=== PATIENT | male | born 2000 | race Caucasian/White ===

== ENCOUNTER 2018-03-20 20:10 | Emergency (ER) | payer OTHER ==
[2018-03-20] MEDS ORDERED: FAMOTIDINE 20 MG TABLET PO ONE (22:03)
[2018-03-20] MEDS ORDERED: DEXAMETHASONE SOD PHOS INJ 10 MG/1 ML VIAL IM ONE (22:03)
--- NOTE | 2018-03-20 22:09 | ER Document Report ---
ED Skin Rash/Insect Bite/Abscs - General Chief Complaint: Skin Problem and rash Stated Complaint: RASH RIGHT SIDE OF BACK Time Seen by Provider: 03/20/18 20:25 Mode of Arrival: Ambulatory Information source: Patient Notes: 18-year-old male presented to ED for complaint of mild pain to the right back with what appeared to be large hives and a line in a single dermatome. There was no vesicular rash. Patient stated he did have itching with very little pain and that the itching and pain is gone at this time. 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 Denies any past medical history he does have all his immunizations up-to-date and states he has never had chickenpox. His is . Patient is alert oriented respirations regular and unlabored speaking in full sentences. TRAVEL OUTSIDE OF THE [place] IN LAST 30 DAYS: No - HPI Patient complains to provider of: Skin rash/lesion - Right back along a single dermatome but the rash is not vesicular it looks more like hives Onset: Just prior to arrival Onset/Duration: Gradual Quality of pain: No pain - No pain at this time. He states there was minimal pain earlier Severity: Mild Pain Level: 1 Skin Character: Erythema, Rash - I like rash in a single dermatome mid back on the right Quality of rash: Itchy - Mild, Painful - States he did have some mild pain but no pain at this time Identify cause: No Exacerbated by: Denies Relieved by: Denies Similar symptoms previously: No Recently seen / treated by doctor: No - Related Data Allergies/Adverse Reactions: No Known Allergies Allergy (Unverified 03/20/18 20:16) Past Medical History - General Information source: Patient - Social History Smoking Status: Current Every Day Smoker Cigarette use (# per day): Yes - 6 cigarettes a day Chew tobacco use (# tins/day): No Smoking Education Provided: Yes - 4 minutes Frequency of alcohol use: None Drug Abuse: None Occupation: Active-duty [employer] Lives with: Family Family History: Reviewed & Not Pertinent Patient has suicidal ideation: No Patient has homicidal ideation: No - Past Medical History Cardiac Medical History: Reports: None Pulmonary Medical History: Reports: None EENT Medical History: Reports: None Neurological Medical History: Reports: None Endocrine Medical History: Reports: None Renal/ Medical History: Reports: None Malignancy Medical History: Reports None GI Medical History: Reports: None Musculoskeletal Medical History: Reports None Skin Medical History: Reports None Psychiatric Medical History: Reports: None Traumatic Medical History: Reports: None Infectious Medical History: Reports: None Surgical Hx: Negative Past Surgical History: Reports: None - Immunizations Immunizations up to date: Yes Hx Diphtheria, Pertussis, Tetanus Vaccination: Yes Review of Systems - Review of Systems Constitutional: No symptoms reported EENT: No symptoms reported Cardiovascular: No symptoms reported Respiratory: No symptoms reported Gastrointestinal: No symptoms reported Genitourinary: No symptoms reported Male Genitourinary: No symptoms reported Musculoskeletal: No symptoms reported Skin: Rash - This is not a vesicular rash Hematologic/Lymphatic: No symptoms reported Neurological/Psychological: No symptoms reported -: Yes All other systems reviewed and negative Physical Exam - Vital signs Vitals: Temp Pulse Resp BP Pulse Ox 98.0 F 76 16 115/56 L 97 03/20/18 20:19 03/20/18 20:19 03/20/18 20:19 03/20/18 20:19 03/20/18 20:19 Interpretation: Normal - General General appearance: Appears well, Alert - HEENT Head: Normocephalic, Atraumatic Eyes: Normal Pupils: PERRL - Respiratory Respiratory status: No respiratory distress Chest status: Nontender Breath sounds: Normal Chest palpation: Normal - Cardiovascular Rhythm: Regular Heart sounds: Normal auscultation Murmur: No - Abdominal Inspection: Normal Distension: No distension Bowel sounds: Normal Tenderness: Nontender Organomegaly: No organomegaly - Back Back: Normal, Nontender - Extremities General upper extremity: Normal inspection, Nontender, Normal color, Normal ROM , Normal temperature General lower extremity: Normal inspection, Nontender, Normal color, Normal ROM , Normal temperature, Normal weight bearing. No: Telma's sign - Neurological Neuro grossly intact: Yes Cognition: Normal Orientation: AAOx4 Cam Coma Scale Eye Opening: Spontaneous Sheldon Coma Scale Verbal: Oriented Sheldon Coma Scale Motor: Obeys Commands Cam Coma Scale Total: 15 Speech: Normal Motor strength normal: LUE, RUE, LLE, RLE Sensory: Normal - Psychological Associated symptoms: Normal affect, Normal mood - Skin Skin Temperature: Warm Skin Moisture: Dry Skin Color: Normal Skin irregularity: Rash - right upper back does not cross the midline but is not vesicular in a single dermatome Character of irregularity: Erythematous, Urticarial Course - Re-evaluation Re-evalutation: 03/21/18 01:[address] Cai due to the location of the rash even though the rash is not vesicular. He recommended treating the patient as an allergic reaction but to instruct the patient to follow-up with his doctor if it forms pustules or it becomes painful. Patient was treated as recommended and discharged home with instructions to follow-up with his doctor. - Vital Signs Vital signs: Temp Pulse Resp BP Pulse Ox 98.0 F 59 L 16 111/66 100 03/20/18 20:19 03/20/18 22:37 03/20/18 22:37 03/20/18 22:37 03/20/18 22:37 Discharge - Discharge Clinical Impression: Rash and nonspecific skin eruption Condition: Stable Disposition: HOME, SELF-CARE Additional Instructions: ACUTE ALLERGIC REACTION: Your symptoms are due to an allergic reaction. Allergy can cause hives, swelling of the hands, feet, and face, hoarseness, and difficulty swallowing or breathing. It may be due to exposure to medication, animal dander, foods, infection, or insect bites. Medication is a common cause, even when prior use of this same medication caused no problems. Acute treatment may include adrenalin and antihistamines. Usually, the specific allergic agent can't be identified unless repeated episodes occur. Home treatment includes the following: (1) Stop any suspicious medications. This will be discussed with you. (2) Oral antihistamines for the next four to five days. Example, diphenhydramine (Benadryl) every four hours. (3) You may also use cimetidine (Tagamet), ranitidine (Zantac), or famotidine ( Pepcid) every four hours if diphenhydramine is not controlling itching and hives. (4) Avoid aspirin until the hives completely disappear. (5) Avoid hot baths or showers until the hives are completely gone. Call the doctor if faintness, difficulty swallowing, tightness in the chest , or wheezing occurs. The rash to your right back appears to be an allergic reaction to something you have come in contact with but it is in a dermatome that is consistent with shingles. The rash is not vesicular in nature which most shingles are and it is not painful. I have given you steroid injections antihistamines and acid suppressive medication which is treatment for an allergic reaction. Please monitor this rash if it starts wrapping around to your chest becomes more like fluid-filled bumps and becomes painful you need to seek medical attention as this could be shingles. There is medication to reduce the discomfort from shingles but there is nothing to prevent or cure shingles as it is a viral infection of the nerve endings. I have given you instructions here concerning shingles not that this is what I am diagnosing you with but just so you will know what to look for. Shingles I do not feel that you have shingles at this time but this is education so if you have the symptoms you can follow-up with your medical provider. Shingles is caused by the chicken pox virus, The virus has been surviving dormant in a nerve cell since you had chicken pox years ago. The virus has spread down a nerve root to reach the skin. Typically, an band-like area of pain and skin sensitivity develops, then small blisters erupt in the area. Shingles lasts two or three weeks, but sometimes leaves persistent pain. You are contagious if anyone touches the area -- you can give children chicken pox. But you can't give anyone shingles. Antiviral medicines (such as acyclovir or famciclovir) can help, but the rash usually worsens for about a week. Pain medication is often given if the area hurts. Antihistamines such as Benadryl may be necessary for itching if it does not respond to soda baths and calamine lotion. Sometimes cortisone medicine or nerve-block shots are necessary if pain is severe. If the area remains severely painful as the sores heal, or if you suspect an infection developing in the sores, see your doctor. STEROID MEDICATION INJECTION: You have been given an injection of medicine of the cortisone/steroid class. This medication is used to control inflammation or allergy. It is often continued as a pill for a short period of time, until the acute process subsides. There are usually no side effects from short-term use of cortisone-like medications. Some persons feel an increased sense of well-being and are not sleepy at bedtime. Long-term use of cortisone medications is best avoided, unless required for a severe condition. If your condition does not remit, or relapses after the course of corticosteroid medication, you should consult your physician. ACID-SUPPRESSING MEDICATION: You have a prescription for medicine which reduces the stomach's secretion of acid. Examples include Zantac, Tagament, and Pepcid. These drugs are often used to allow healing of ulcers or esophagitis. They may be needed to prevent recurrence of ulcers in some patients, or to prevent damage from acid reflux in the esophagus. Take all medication as prescribed, even after the pain is gone. Regular antacids may be added as needed if you have symptoms while taking this medicine. These medications sometimes are prescribed for allergic reactions because they have anti-histaminic effects and relieve the rash and itching of the reaction. There are usually no side effects from this medication. But, in rare cases and particularly in the elderly, serious problems can occur. Contact your doctor if there is fever, rash, hallucinations, confusion, or unusual bruising. Contact your doctor at once if you develop lightheadedness, black or bloody stool, or bloody vomitus. ANTIHISTAMINES: An antihistamine has been given and/or prescribed to control your symptoms. Antihistamines are used for many reasons, including itching, watering eyes, runny nose, allergic swelling, hives, and insect stings. Antihistamines may cause drowsiness, especially with the first dose. Do not operate machinery or drive while under the effects of the medication. Other common side effects include dry mouth and eyes. In older persons, antihistamines can occasionally cause urinary retention, constipation, and trouble focusing the eyes. Do not combine the medication with alcohol, or with any other medication without talking to your doctor. USE OF DIPHENHYDRAMINE: The use of diphenhydramine (Benadryl) has been recommended to control allergic symptoms. The 25 mg strength is available over- the-counter, as well as the elixir. This antihistamine is used for many symptoms. It's useful for itching, watering eyes and nose, allergic swelling, hives, and insect stings. The medication can be repeated four times daily. Age Elixir (12.5 mg/tsp) 25 mg pill 2-3 yr 1/2 tsp 4-8 yr 1 tsp 9-14 yr 2 tsp one tab adult 1-2 tabs Antihistamines may cause drowsiness, especially with the first dose. Do not operate machinery or drive while under the effects of the medication. Do not combine the medication with alcohol, or with any other medication without talking to your doctor. FOLLOW-UP CARE: If you have been referred to a physician for follow-up care, call the physician s office for an appointment as you were instructed or within the next two days. If you experience worsening or a significant change in your symptoms, notify the physician immediately or return to the Emergency Department at any time for re-evaluation. Prescriptions: Hydroxyzine Pamoate [Vistaril] 25 mg PO Q6HP PRN #20 capsule PRN Reason: Skin Irritation Ibuprofen 600 mg PO Q6HP PRN #20 tablet PRN Reason: For Pain Famotidine [Pepcid 20 mg Tablet] 20 mg PO BID #12 tablet
[2018-03-20 22:39] VITALS: BP 111/66
== END 2018-03-20 22:37 | disposition home or self-care (01) ==
LOC: ER 20:10
DX: L50.9 Urticaria, unspecified (principal); F17.210 Nicotine dependence, cigarettes, uncomplicated; Z71.6 Tobacco abuse counseling
CPT/HCPCS: 99406; 99282; 96372; J1100

== ENCOUNTER 2019-03-10 17:36 | Emergency (ER) | payer OTHER ==
[2019-03-10] MEDS ORDERED: ACETAMINOPHEN 325 MG TABLET PO ONE (18:15)
--- NOTE | 2019-03-10 18:15 | ER Document Report ---
ED Medical Screen (RME) - General Chief Complaint: Knee Injury Stated Complaint: RIGHT KNEE PAIN Time Seen by Provider: 03/10/19 18:12 Mode of Arrival: Ambulatory Information source: Patient Notes: 18-year-old male presented to ED for complaint of pain and injury to his right knee. He states he was running when he fell landing on his right knee. He is alert oriented questions regular nonlabored speaking in full sentences he states he does smoke 5 cigarettes a day does not drink or do any illicit drugs. 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 He denies any past medical or surgical history. X-ray was I have greeted and performed a rapid initial assessment of this patient. A comprehensive ED assessment and evaluation of the patient, analysis of test results and completion of medical decision making process will be conducted by an additional ED providers. TRAVEL OUTSIDE OF THE [place] IN LAST 30 DAYS: No - Related Data Allergies/Adverse Reactions: No Known Allergies Allergy (Unverified 03/20/18 20:16) Past Medical History Renal/ Medical History: Denies: Hx Peritoneal Dialysis - Immunizations Immunizations up to date: Yes Hx Diphtheria, Pertussis, Tetanus Vaccination: Yes Physical Exam - Vital signs Vitals: Temp Pulse Resp BP Pulse Ox 98.3 F 90 18 126/73 H 99 03/10/19 17:39 03/10/19 17:39 03/10/19 17:39 03/10/19 17:39 03/10/19 17:39 Course - Vital Signs Vital signs: Temp Pulse Resp BP Pulse Ox 98.3 F 90 18 126/73 H 99 03/10/19 17:39 03/10/19 17:39 03/10/19 17:39 03/10/19 17:39 03/10/19 17:39
--- NOTE | 2019-03-10 19:17 | RADIOLOGY REPORT (SQ) ---
EXAM DESCRIPTION: KNEE RIGHT 4 VIEWS COMPLETED DATE/TIME: 03/10/2019 6:44 pm REASON FOR STUDY: fall and injury . Basketball injury. COMPARISON: None. NUMBER OF VIEWS: Four views. TECHNIQUE: AP, lateral, and both oblique radiographic images acquired of the right knee. LIMITATIONS: None. FINDINGS: MINERALIZATION: Normal. BONES: No acute fracture or dislocation. 12 mm oval shaped sclerotic density at the shaft of the pro ximal tibia may represent a bone island. JOINT: No significant effusion. SOFT TISSUES: No soft tissue swelling. No radio-opaque foreign body. IMPRESSION: No radiographic evidence for acute fracture at the right knee. TECHNICAL DOCUMENTATION: JOB ID: [id number] [employer]- All Rights Reserved Reading location - IP/workstation name: [email or web address]
[2019-03-10 19:50] VITALS: BP 130/85
--- NOTE | 2019-03-10 20:04 | ER Document Report ---
HPI - HPI Time Seen by Provider: 03/10/19 18:12 Pain Level: 3 Notes: Patient is an otherwise healthy 18-year-old male presenting to the emergency department with chief complaint of right knee pain. Patient reports he tripped and fell landing onto his right knee just a few hours prior to arrival. He is not had any treatment prior to arrival. He is reporting pain over the kneecap. He is able to ambulate but states there is pain with ambulation. - REPRODUCTIVE Reproductive: DENIES: : Past Medical History - General Information source: Patient - Social History Smoking Status: Current Every Day Smoker Chew tobacco use (# tins/day): No Frequency of alcohol use: None Drug Abuse: None Family History: Reviewed & Not Pertinent Patient has suicidal ideation: No Patient has homicidal ideation: No - Medical History Medical History: Negative Renal/ Medical History: Denies: Hx Peritoneal Dialysis Surgical Hx: Negative - Immunizations Immunizations up to date: Yes Hx Diphtheria, Pertussis, Tetanus Vaccination: Yes Vertical Provider Document - CONSTITUTIONAL Notes: PHYSICAL EXAMINATION: GENERAL: Well-appearing, well-nourished and in no acute distress. HEAD: Atraumatic, normocephalic. EYES: Pupils equal round extraocular movements intact, conjunctiva are normal. ENT: Nares patent NECK: Normal range of motion LUNGS: No respiratory distress Musculoskeletal: Slightly limited range of motion at right knee, mild tenderness and erythema with palpation over the kneecap. Otherwise normal knee exam. NEUROLOGICAL: Normal speech, normal gait. PSYCH: Normal mood, normal affect. SKIN: Warm, Dry, normal turgor, no rashes or lesions noted. - INFECTION CONTROL TRAVEL OUTSIDE OF THE [place] IN LAST 30 DAYS: No Course - Re-evaluation Re-evalutation: Knee X-Ray 03/10/19 18:15 IMPRESSION: No radiographic evidence for acute fracture at the right knee. Right knee x-ray negative for any acute fracture or abnormality. Patient does have significant tenderness so will place patient in a knee immobilizer and crutches. He will follow-up with his primary care provider for further management if this pain does not begin to subside over the next week. ED return precautions were discussed, patient verbalizes understanding and agreement with same. - Vital Signs Vital signs: Temp Pulse Resp BP Pulse Ox 98.2 F 70 14 130/85 H 98 03/10/19 19:49 03/10/19 19:49 03/10/19 19:49 03/10/19 19:49 03/10/19 19:49 Procedures - Immobilization Right knee Pre-Proc Neuro Vasc Exam: Normal Immobilizer type: Crutches, Knee immobilizer Performed by: PCT Post-Proc Neuro Vasc Exam: Normal Alignment checked and good: Yes Discharge - Discharge Clinical Impression: Knee injury Qualifiers: Encounter type: initial encounter Laterality: right Qualified Code(s): S89.91XA - Unspecified injury of right lower leg, initial encounter Condition: Stable Disposition: HOME, SELF-CARE Instructions: Use of Crutches ([facility]), Ice & Elevation ([facility]), Suspected Internal Knee Injury ([facility]), Knee Immobilizing Splint ([facility]) Additional Instructions: The x-ray of your knee did not show any fracture or dislocation of the bones. This does not necessarily rule out an internal injury such as a ligament or tendon injury. Use the knee immobilizer and crutches until you see your primary care provider. Ice and elevate as outlined in the discharge packet. Take ibuprofen 600 mg every 6 hours for pain. Return to the emergency department for any new or worsening symptoms.
== END 2019-03-10 20:04 | disposition home or self-care (01) ==
LOC: ER 17:36
DX: S89.91XA Unspecified injury of right lower leg, initial encounter (principal); W01.0XXA Fall on same level from slipping, tripping and stumbling without subsequent striking against object, initial encounter; F17.200 Nicotine dependence, unspecified, uncomplicated
CPT/HCPCS: 73564; L1830; 99283